=== PATIENT | female | born 1965 | race Caucasian/White ===

== ENCOUNTER 2017-05-08 23:34 | Emergency (ER) | payer BC ==
[~2017-05-08] VITALS: Ht 160 cm; Wt 83.0 kg
[~2017-05-08 23:34] MED LIST: ASPI81EC PO; ATEN50 PO; CITA20 PO; Percocet 5-3251 EACH PO; ROSU10TA PO
[2017-05-08] MEDS ORDERED: HYDCHL25 PO (23:46)
== END 2017-05-09 00:33 | disposition home or self-care (01) ==
LOC: ER 23:34
DX: S61.411A Laceration without foreign body of right hand, initial encounter (principal); Z79.899 Other long term (current) drug therapy; Z79.82 Long term (current) use of aspirin; I10 Essential (primary) hypertension; E78.00 Pure hypercholesterolemia, unspecified; W45.8XXA Other foreign body or object entering through skin, initial encounter; F41.9 Anxiety disorder, unspecified; F17.210 Nicotine dependence, cigarettes, uncomplicated
CPT/HCPCS: 90471; 90714; 99283

== ENCOUNTER → 2018-10-21 | Outpatient (CLI) | payer BC ==
[~2018-10-21] MED LIST changes: +ATEN100 PO; +Crestor20 MG PO; +HYDCHL25 PO
[2018-10-21 11:58] LABS: Adenovirus F 40/41 Not Detected (NOT DETECT); Astrovirus Not Detected (NOT DETECT); Campylobacter Sp Not Detected (NOT DETECT); Cryptosporidium Not Detected (NOT DETECT); Cyclospora Cayetanensis Not Detected (NOT DETECT); E. Coli O157 Not Detected (NOT DETECT); Entamoeba Histolytica Not Detected (NOT DETECT); Enteroaggregative E. coli-EAEC Not Detected (NOT DETECT); Enteropathogenic E. coli-EPEC Not Detected (NOT DETECT); Enterotoxigenic E. coli-ETEC Not Detected (NOT DETECT); Giardia Lamblia Not Detected (NOT DETECT); Norovirus GI/GII Not Detected (NOT DETECT); Plesiomonas Shigelloides Not Detected (NOT DETECT); Rotavirus A Not Detected (NOT DETECT); Salmonella Sp Not Detected (NOT DETECT); Sapovirus Not Detected (NOT DETECT); Shiga Toxin-prod E. coli-STEC Not Detected (NOT DETECT); Shigella/Enteroin E. coli-EIEC Not Detected (NOT DETECT); Vibrio Cholerae Not Detected (NOT DETECT); Vibrio Sp Not Detected (NOT DETECT); Yersinia Enterocolitica Not Detected (NOT DETECT)
== END | disposition home or self-care (01) ==
LOC: LAB SHORT 06:35 → LAB 06:35 → LAB FUT 10-06 09:55 → EDSTATUS 10-06 09:55
PROVIDERS: Student in an Organized Health Care Education/Training Program
DX: K52.9 Noninfective gastroenteritis and colitis, unspecified (principal); R74.8 Abnormal levels of other serum enzymes
CPT/HCPCS: 0097U

== ENCOUNTER 2018-10-31 09:53 | Day surgery (SDC) | payer BC ==
[~2018-10-31] VITALS: Ht 160 cm; Wt 78.3 kg
== END 2018-10-31 11:52 | disposition home or self-care (01) ==
LOC: ORSCSDS 09:53
PROVIDERS: Student in an Organized Health Care Education/Training Program
PROC: 0DBE8ZX Excision of Large Intestine, Via Natural or Artificial Opening Endoscopic, Diagnostic (ICD-10-PCS; principal; 2018-10-31 11:15)
PROC: 0DBP8ZX Excision of Rectum, Via Natural or Artificial Opening Endoscopic, Diagnostic (ICD-10-PCS; principal; 2018-10-31 11:15)
PROC: 0DBL8ZX Excision of Transverse Colon, Via Natural or Artificial Opening Endoscopic, Diagnostic (ICD-10-PCS; principal; 2018-10-31 11:15)
DX: R19.7 Diarrhea, unspecified (principal); D12.3 Benign neoplasm of transverse colon; K64.8 Other hemorrhoids; K57.30 Diverticulosis of large intestine without perforation or abscess without bleeding; F17.210 Nicotine dependence, cigarettes, uncomplicated; I10 Essential (primary) hypertension; E78.5 Hyperlipidemia, unspecified; Z79.899 Other long term (current) drug therapy
CPT/HCPCS: 88305; J2250; J2704; J7120

== ENCOUNTER 2019-04-04 18:01 | Emergency (ER) | payer OTHER, BC ==
[~2019-04-04] VITALS: Ht 160 cm; Wt 77.1 kg
[2019-04-04 18:43] LABS: BASOPHILS ABSOLUTE AUTO 0.07 K/mm3 (0.00-0.23); BASOPHILS PERCENT AUTO 1 % (0-2); EOSINOPHILS PERCENT AUTO 1 % (0-6); Hematocrit 36.7 % (33.0-51.0); Hemoglobin 12.3 g/dL (11.5-16.0); IMMATURE GRAN ABSOLUTE AUTO 0.13 K/mm3 (0.00-0.10); IMMATURE GRAN PERCENT AUTO 1 % (0-1); LYMPHOCYTES ABSOLUTE AUTO 3.43 K/mm3 (0.84-5.20); LYMPHOCYTES PERCENT AUTO 36 % (21-46); MONOCYTES ABSOLUTE AUTO 0.66 K/mm3 (0.16-1.47); MONOCYTES PERCENT AUTO 7 % (4-13); Mean Corpuscular HGB 32.5 pg (26.0-34.0); Mean Corpuscular HGB Conc 33.5 g/dL (31.5-36.5); Mean Corpuscular Volume 97 fL (80-100); NEUTROPHILS ABSOLUTE AUTO 5.04 K/mm3 (1.96-9.15); NEUTROPHILS PERCENT AUTO 53 % (41-73); Platelet Count 259 K/mm3 (150-400); RDW Coefficient Variation 12.3 % (11.7-14.2); RDW Standard Deviation 43.2 fL (35.1-46.3); Red Blood Cell Count 3.79 M/mm3 (3.80-5.20); White Blood Cell Count 9.43 K/mm3 (4.00-11.30)
[2019-04-04 19:00] LABS: Anion Gap 11 mmol/L (6-16); Blood Urea Nitrogen 16 mg/dL (8-24); Bun/Creatinine Ratio 25.3 (12.0-20.0); CO2, Blood 24 mmol/L (21-32); Calcium, Blood 9.3 mg/dL (8.5-10.1); Chloride, Blood 101 mmol/L (98-108); Creatinine, Blood 0.63 mg/dL (0.40-1.00); Glomerular Filtration Rate >60 (60-); Glucose, Blood 148 mg/dL (70-99); Potassium, Blood 2.7 mmol/L (3.5-5.5); Sodium, Blood 136 mmol/L (136-145)
== END 2019-04-04 19:05 | disposition short-term general hospital (02) ==
LOC: ER 18:01
PROVIDERS: Emergency Medicine
DX: S06.6X9A Traumatic subarachnoid hemorrhage with loss of consciousness of unspecified duration, initial encounter (principal); V49.60XA Unspecified car occupant injured in collision with unspecified motor vehicles in traffic accident, initial encounter; I10 Essential (primary) hypertension; E78.5 Hyperlipidemia, unspecified; F41.9 Anxiety disorder, unspecified; F17.210 Nicotine dependence, cigarettes, uncomplicated
CPT/HCPCS: 36415; 70450; 80048; 85025; 96374; 99285-25; J2405

== ENCOUNTER 2019-04-08 20:58 | Inpatient (IN) | payer OTHER, BC ==
[~2019-04-08] VITALS: Ht 160 cm; Wt 78.5 kg
[2019-04-08] MEDS ORDERED: ACET325 PO (21:26)
[2019-04-08] MEDS ORDERED: OXYC5 PO (21:27)
[2019-04-08] MEDS ORDERED: GAVILAX17 GM PO (21:27)
[2019-04-08] MEDS ORDERED: LEVE500 PO (21:27)
[2019-04-08 21:41] LABS: BASOPHILS ABSOLUTE AUTO 0.07 K/mm3 (0.00-0.23); BASOPHILS PERCENT AUTO 1 % (0-2); EOSINOPHILS ABSOLUTE AUTO 0.03 K/mm3 (0.00-0.68); EOSINOPHILS PERCENT AUTO 0 % (0-6); Hemoglobin 11.9 g/dL (11.5-16.0); IMMATURE GRAN PERCENT AUTO 2 % (0-1); LYMPHOCYTES ABSOLUTE AUTO 1.77 K/mm3 (0.84-5.20); LYMPHOCYTES PERCENT AUTO 13 % (21-46); MONOCYTES ABSOLUTE AUTO 0.92 K/mm3 (0.16-1.47); MONOCYTES PERCENT AUTO 7 % (4-13); Mean Corpuscular HGB 32.1 pg (26.0-34.0); Mean Platelet Volume 8.7 fL (9.1-12.4); NEUTROPHILS ABSOLUTE AUTO 10.24 K/mm3 (1.96-9.15); NEUTROPHILS PERCENT AUTO 77 % (41-73); Platelet Count 295 K/mm3 (150-400); RDW Coefficient Variation 11.8 % (11.7-14.2); RDW Standard Deviation 39.6 fL (35.1-46.3); Red Blood Cell Count 3.71 M/mm3 (3.80-5.20); White Blood Cell Count 13.33 K/mm3 (4.00-11.30)
[2019-04-08 21:42] LABS: Mean Corpuscular Volume 92 fL (80-100)
[2019-04-08 21:56] LABS: International Normalized Ratio 0.99; Prothrombin Time Results 10.6 Sec (9.7-11.5)
[2019-04-08 22:12] LABS: Alanine Aminotransfer (ALT/SGP 35 U/L (12-78); Albumin, Blood 3.7 g/dL (3.4-5.0); Albumin/Globulin Ratio 0.8 (0.8-1.8); Alk Phos 154 U/L (50-136); Anion Gap 9 mmol/L (6-16); Aspartate Aminotrans (AST/SGOT 41 U/L (12-37); Blood Urea Nitrogen 7 mg/dL (8-24); Bun/Creatinine Ratio 17.5 (12.0-20.0); CO2, Blood 25 mmol/L (21-32); Calcium, Blood 9.2 mg/dL (8.5-10.1); Chloride, Blood 84 mmol/L (98-108); Globulin, Blood 4.4 g/dL (2.2-4.0); Glomerular Filtration Rate >60 (60-); Glucose, Blood 117 mg/dL (70-99); Potassium, Blood 3.7 mmol/L (3.5-5.5); Sodium, Blood 118 mmol/L (136-145); Total Protein, Blood 8.1 g/dL (6.4-8.2)
[2019-04-08 23:40] LABS: Source, Urine Voided
[2019-04-08 23:44] LABS: Bilirubin, Urine Neg (Neg); Blood, Urine 3+ (Neg); Glucose Qualitative, Urine 2+ (Neg); Ketones, Urine 3+ (Neg); Leukocyte Esterase, Urine Neg (Neg); Nitrite, Urine Neg (Neg); Protein, Urine 3+ (Neg); Specific Gravity, Urine 1.015 (1.003-1.022); Urobilinogen, Urine 2+ (Normal)
[2019-04-08 23:49] LABS: Appearance, Urine Clear (Clear); Color, Urine Yellow (P-Yellow)
[2019-04-08 23:50] LABS: Bacteria Few /hpf; Squamous Epithelial Cells Few /hpf (Few)
[2019-04-09] MEDS ORDERED: BENZ100A PO (01:17)
[2019-04-09 03:08] LABS: Osmolality, Serum 256 mos/KG (275-300)
[2019-04-09 03:12] LABS: Anion Gap 12 mmol/L (6-16); Blood Urea Nitrogen 7 mg/dL (8-24); Bun/Creatinine Ratio 17.5 (12.0-20.0); CO2, Blood 18 mmol/L (21-32); Calcium, Blood 7.8 mg/dL (8.5-10.1); Chloride, Blood 94 mmol/L (98-108); Glomerular Filtration Rate >60 (60-); Glucose, Blood 104 mg/dL (70-99); Potassium, Blood 3.4 mmol/L (3.5-5.5); Sodium, Blood 124 mmol/L (136-145); Uric Acid, Blood 1.5 mg/dL (2.6-6.0)
[2019-04-09 04:48] LABS: Source, Urine Catheter
[2019-04-09 04:50] LABS: Bilirubin, Urine Neg (Neg); Blood, Urine 2+ (Neg); Glucose Qualitative, Urine Neg (Neg); Ketones, Urine Neg (Neg); Leukocyte Esterase, Urine Neg (Neg); Nitrite, Urine Neg (Neg); Protein, Urine Neg (Neg); Urobilinogen, Urine NORM (Normal)
[2019-04-09 05:00] LABS: Appearance, Urine Clear (Clear); Color, Urine Pale Yellow (P-Yellow)
[2019-04-09 05:01] LABS: Bacteria Not Seen /hpf; Red Blood Cells, Urine 0-2 /hpf (0-2); Squamous Epithelial Cells Rare /hpf (Few); White Blood Cells, Urine Not Seen /hpf (0-5)
--- NOTE | 2019-04-09 06:04 | NUR ---
PT DROWSEY A BASELINE, FORGETFUL UPON AWAKENING, MULTIPLE ATTEMPS TO GET OUT OF BED TO USE BATHROOM. PT VOIDING WITH URGENCY AND HIGH FREQUENCY, GAIT UNSTEADY AND IMPLUSIVE HISK FOR FALLS. DOYLE W/TEMP PLACED FOR STRICT I/O AND POSSIBLE DI. PT OUTPUT 1200ML/HR POST INSERTION. 700ML OUT FROM [id number] PT STILL ATTEMPS TO GET OUT OF BED WITH DOYLE IN PLACE. REDIRECTED AND EDUCATED ON NEED TO CALL NURSE BEFORE GETTING OUT OF BED. PT MAX TEMP 100.8, TYLENOL GIVEN. WILL CONTINUE TO MONITOR.
[2019-04-09 07:02] LABS: Anion Gap 9 mmol/L (6-16); Blood Urea Nitrogen 6 mg/dL (8-24); Bun/Creatinine Ratio 13.3 (12.0-20.0); CO2, Blood 19 mmol/L (21-32); Calcium, Blood 7.8 mg/dL (8.5-10.1); Chloride, Blood 104 mmol/L (98-108); Creatinine, Blood 0.45 mg/dL (0.40-1.00); Glomerular Filtration Rate >60 (60-); Glucose, Blood 119 mg/dL (70-99); Potassium, Blood 3.7 mmol/L (3.5-5.5); Sodium, Blood 132 mmol/L (136-145)
--- NOTE | 2019-04-09 08:46 | NUR ---
0745 ASSESMENT REVEALS PT IS EASILY AROUSED FOR SLEEP, FOLLOWS COMMANDS BUT IS FORGETS AND IS NOTED TO BE IMPULSIVE. PT DANITA WITH FULL GAZE AND FOLLOWS IN IN ALL DIRECTIONS. PT MOVING TOUNGE IN ALL DIRECTIONS. PT IS SOMEWHAT WEAK IN ALL EXT. BUT MOVING UPPER EXT WITH EQUAL ELECTRONIC DIE MAKER AND NO PRONATION OR DRIFT OBSERVED. PT BILAT EQUAL QUAD STRENGTH, BUT SOME SL MOD WEAKNESS OF L FOOT IS NOTED WITH DORSI AND PLANTERT FLEXION. PT WILL FOLLOW COMMANDS WELL TO ALL REQUESTS, HOWEVER FORGETFUL. PT DOES EXPRESS HAVING A H.A. BUT IMPROVED FOR 12/06 TO 5-09/05 AFTER TYLENOL PO DOSE EARLIER. WILL FOLLOW PT VS AND NEURO STATUS. PT LABS NOTED AND CALLED TO DR DAS WITH CHANGED IN IVF RATE NS TO 125ML. UO HAS BEEN QUITE HIGH AND REPORTED TO . URINE IS VERY CLEAR AND PALE. WILL MONITOR. PT IS ABLE TO REMEMBER HOW TO USE CALL LIGHT AND CALLS APPROPRIATELY.
--- NOTE | 2019-04-09 11:50 | NUR ---
1100 PT CONTINUES TO DIURES W/O DIURETICS. PT HAS DIURESED 3475 SENCE 06. HER VS ARE NOTED AND STABLE. PT HAS GOTTEN RELIEF FROM PO PAIN MEDS AND IS SLEEPING. PRIOR TO SLEEP PT WAS A/O AND VISITING WITH APPROPRIATELY. DUE TO THE HEAVY SELF DIURESIS NOTED, AND THAT THE PT IS SCHEDULED FOR 1200 LABS, WILL HOLD MEDICATIONS FOR NOW. LASIX DOSING WAS DISCUSSED WITH DR DAS DUE TO PT OWN SELF DIURESIS AND THE ORDER WAS NOT WITHDRAWN DUE TO PHYSICIAN CONCERNS ABOUT ICP ISSUES AND NOT OVER CORRECTING SERUM SODIUM WITH THE PRIOR FLUIDS THAT HAVE BEEN GIVEN. PLEASE REFER TO CURRENT LABS. DISCUSSED [facility].
[2019-04-09 12:32] LABS: Anion Gap 6 mmol/L (6-16); Blood Urea Nitrogen 6 mg/dL (8-24); Bun/Creatinine Ratio 12.3 (12.0-20.0); CO2, Blood 23 mmol/L (21-32); Calcium, Blood 8.5 mg/dL (8.5-10.1); Chloride, Blood 106 mmol/L (98-108); Creatinine, Blood 0.49 mg/dL (0.40-1.00); Glomerular Filtration Rate >60 (60-); Glucose, Blood 123 mg/dL (70-99); Potassium, Blood 3.5 mmol/L (3.5-5.5); Sodium, Blood 135 mmol/L (136-145)
--- NOTE | 2019-04-09 13:35 | NUR ---
PT NEURO ASSESSMENT STABLE EXCEPT PERSISTANT WEAKNESS OR PLANTER AND DORSI FLEXION OF L FOOT. PT IS OTHERWISE A/O AND CAMPOVERDE PERISITS AT 5-6/10 LEVEL WITH RELIEF TO SLEEP EARLIER. LABS NOTED ARE I/O AND LAISX DOSE GIVEN PER ORDER. FAMILY HAVE BEEN IN THE ROOM AND VISITING ALTHOUGH PT IS TIRED AND HAS PERSISTANT CAMPOVERDE.
--- NOTE | 2019-04-09 15:21 | NUR ---
PT CONT TO SLEEP WELL FROM PAIN MEDS AND VSS. OUTPUT FOLLOWED AND HAD NOTICIBLE SLOWED BEFORE LASIX WAS GIVEN. CONT TO BE NSR.
--- NOTE | 2019-04-09 17:23 | NUR ---
PT IS AWAKE AND ALERT NOTES CAMPOVERDE IS 4/10 AND VISITING WITH FAMILY. PT NEURO STATUS IS UNCHANGED OTHER THAN LESS IMPULSIVE AND L FOOT DORSI/PLANTER FLEX IS SIMULAR WITH ONLY SL SLUGGISHNESS TO RESPONSES AND SL STRONGER EFFORT BUT REMAINS TO BE A DEFICITE. SPEECH IS SLOW BUT CLEAR. I/O NOTED. VSS. PT IS TAKING PO WELL BUT REFUSING MEALS.
--- NOTE | 2019-04-09 19:38 | NUR ---
ASSUMED CARE AT 1915. PT SLEEPING, WAKES TO VERBAL, FOLLOWING COMMANDS, MOVE ALL EXTREMETIES WEAKLY, LUE POWERGLIDE. NO DRIPS RUNNING, DOYLE IN PLACE AND PATENT. HEADACHE 4/10 ON PAIN SCALE.
--- NOTE | 2019-04-09 19:54 | NUR ---
PT HR INCREASED TO 128BPM. DENIES CHEST, BP 114/70, SATS 90S%,
--- NOTE | 2019-04-09 20:11 | NUR ---
12 LEAD EKG PERFORMED AND RESULTS PRINTED PRINTED. HR 130S PT STILL DEINES CHEST PAIN PROVIDER CALLED MESSAGE LEFT FOR CALL BACK.
--- NOTE | 2019-04-09 20:30 | NUR ---
DR. OCASIO NOTIFIED OF RHYTHM CHANGE AND EKG RESULTS. 500ML BOLUS ORDER AND REPEAT BMP POST BOLUS ORDER.
--- NOTE | 2019-04-09 20:45 | NUR ---
BOLUS INFUSING, TYLENOL GIVEN FOR ELEVATED TEMP 100.1, PT STATED SHE FEELS DEHYDRATED AND DRANK 250ML OF WATER WITH MED.
--- NOTE | 2019-04-09 20:50 | NUR ---
RHYTHM CHANGE TO SINUS W/ HR IN 90S AND DECREASING. PT DENIES CHEST PAIN AT THIS TIME.
[2019-04-09 22:39] LABS: Anion Gap 8 mmol/L (6-16); Blood Urea Nitrogen 9 mg/dL (8-24); Bun/Creatinine Ratio 16.7 (12.0-20.0); CO2, Blood 23 mmol/L (21-32); Calcium, Blood 8.5 mg/dL (8.5-10.1); Chloride, Blood 104 mmol/L (98-108); Creatinine, Blood 0.54 mg/dL (0.40-1.00); Glomerular Filtration Rate >60 (60-); Glucose, Blood 125 mg/dL (70-99); Potassium, Blood 3.2 mmol/L (3.5-5.5); Sodium, Blood 135 mmol/L (136-145)
--- NOTE | 2019-04-10 01:30 | NUR ---
PT WOKE UP MORE ALERT, REALIZED SHE WAS IN THE HOSPITAL, REQUESTED ICE WATER AND TO HER PHONE. UNABLE TO LOCATE PHONE OR PURSE. PT WAS ABLE TO REMEMBER BOTH DAUGHTERS PHONE NUMBERS AND LEFT A MESSAGE ABOUT HER PURSE/PHONE. HEAD PAIN DOWN TO A 3/10 INCREASES WHILE AWAKE. OXY GIVEN PT SLEEPING
[2019-04-10 03:48] LABS: BASOPHILS ABSOLUTE AUTO 0.12 K/mm3 (0.00-0.23); BASOPHILS PERCENT AUTO 1 % (0-2); EOSINOPHILS ABSOLUTE AUTO 0.03 K/mm3 (0.00-0.68); EOSINOPHILS PERCENT AUTO 0 % (0-6); Hematocrit 35.4 % (33.0-51.0); Hemoglobin 12.3 g/dL (11.5-16.0); IMMATURE GRAN ABSOLUTE AUTO 0.25 K/mm3 (0.00-0.10); IMMATURE GRAN PERCENT AUTO 2 % (0-1); LYMPHOCYTES ABSOLUTE AUTO 1.41 K/mm3 (0.84-5.20); LYMPHOCYTES PERCENT AUTO 13 % (21-46); MONOCYTES ABSOLUTE AUTO 1.02 K/mm3 (0.16-1.47); MONOCYTES PERCENT AUTO 9 % (4-13); Mean Corpuscular HGB 32.6 pg (26.0-34.0); Mean Corpuscular HGB Conc 34.7 g/dL (31.5-36.5); Mean Corpuscular Volume 94 fL (80-100); Mean Platelet Volume 8.6 fL (9.1-12.4); NEUTROPHILS ABSOLUTE AUTO 8.41 K/mm3 (1.96-9.15); NEUTROPHILS PERCENT AUTO 75 % (41-73); Platelet Count 300 K/mm3 (150-400); RDW Coefficient Variation 12.2 % (11.7-14.2); Red Blood Cell Count 3.77 M/mm3 (3.80-5.20); White Blood Cell Count 11.24 K/mm3 (4.00-11.30)
[2019-04-10 04:04] LABS: Albumin, Blood 3.3 g/dL (3.4-5.0); Anion Gap 9 mmol/L (6-16); Blood Urea Nitrogen 10 mg/dL (8-24); CO2, Blood 22 mmol/L (21-32); Calcium, Blood 8.7 mg/dL (8.5-10.1); Chloride, Blood 103 mmol/L (98-108); Creatinine, Blood 0.46 mg/dL (0.40-1.00); Glomerular Filtration Rate >60 (60-); Glucose, Blood 142 mg/dL (70-99); Phosphorus, Blood 2.1 mg/dL (2.5-4.9); Sodium, Blood 134 mmol/L (136-145)
--- NOTE | 2019-04-10 06:40 | NUR ---
PT ALERT WITH SHORT TERM MEMORY LOSS. FOLLOWING COMMANDS, MOVE ALL EXTREMETIES WEAKLY. C/O HEADACHE PAIN CONTROLLED WITH OXY AND DILAUDID. PAIN INCREASED WHILE AWAKE AND BRIGHT LIGHTS. PT BECAME TACHY AT W/HR IN 130S AT 1953, 12-LEAD PREFORMED, NOTIFIED, 500L BOLUS ORDERED/GIVEN, HR <90S HALF WAY THROUGH BOLUS. NO CARDIAC ISSUE FOR REST OF SHIFT. POTASSIUM BEING INFUSED . 750 URINE OUT.
--- NOTE | 2019-04-10 11:47 | NUR ---
0800 PT IS A/O WITH NORMAL NEURO CHECK W/O NOTED DEFICETS. PT SL WEAK BUT NO OTHER SITUATION NOTED. PT IS VERBAL AND CALLING ON THE PHONE. PT CONT TO C/O CAMPOVERDE NOTED, AND MEDS HAVE RELIEFED WITH VARRIABLE RESULTS.
--- NOTE | 2019-04-10 16:28 | NUR ---
Initial spiritual care note: Per admit trigger, I met with Reshma to offer information about advanced care planning. She tells me that her spouse and adult children "know what I want." She told me that the reason she is here runs in her family. She denied being fearful and states that she believes she will be "fine." Prayer provided at bedside. Reshma was pleasant and appreciative. I will remain available.
--- NOTE | 2019-04-10 17:45 | NUR ---
PT HAS HAD LESS PAIN MOST OF PM. H.A. HAS INCREASED LAST FEW HOURS AND DECADRON AND PO MEDS GIVEN. PT IS CONTINUEING TO BE A/O AND MOVING ABOUT IN BED WELL AND HAS BEEN OOB. DOYLE WAS D/C EARLIER AND PT HAS VOIDED.
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
--- NOTE | 2019-04-10 22:34 | NUR ---
PT CALLED RN TO ROOM TO FIX LEADS, STS THEY FELL OFF WHEN SHE GOT OUT OF BED TO USE BSC. EDUCATED PT ON NEED TO USE CALL LIGHT PT STS "I KNOW I SHOULD HAVE USED THE CALL LIGHT BUT I DIDN'T FEEL DIZZY SO I THOUGHT I WOULD BE OKAY." CALL LIGHT WITHIN REACH, BED ALARM ON.
[2019-04-11 05:02] LABS: BASOPHILS ABSOLUTE AUTO 0.05 K/mm3 (0.00-0.23); BASOPHILS PERCENT AUTO 0 % (0-2); EOSINOPHILS ABSOLUTE AUTO 0.01 K/mm3 (0.00-0.68); EOSINOPHILS PERCENT AUTO 0 % (0-6); Hematocrit 35.8 % (33.0-51.0); Hemoglobin 12.3 g/dL (11.5-16.0); IMMATURE GRAN ABSOLUTE AUTO 0.29 K/mm3 (0.00-0.10); IMMATURE GRAN PERCENT AUTO 2 % (0-1); LYMPHOCYTES ABSOLUTE AUTO 1.24 K/mm3 (0.84-5.20); LYMPHOCYTES PERCENT AUTO 8 % (21-46); MONOCYTES ABSOLUTE AUTO 0.33 K/mm3 (0.16-1.47); MONOCYTES PERCENT AUTO 2 % (4-13); Mean Corpuscular HGB Conc 34.4 g/dL (31.5-36.5); Mean Corpuscular Volume 93 fL (80-100); Mean Platelet Volume 8.7 fL (9.1-12.4); NEUTROPHILS PERCENT AUTO 88 % (41-73); Platelet Count 368 K/mm3 (150-400); RDW Coefficient Variation 11.9 % (11.7-14.2); RDW Standard Deviation 40.7 fL (35.1-46.3); Red Blood Cell Count 3.84 M/mm3 (3.80-5.20); White Blood Cell Count 16.32 K/mm3 (4.00-11.30)
[2019-04-11 05:27] LABS: Anion Gap 8 mmol/L (6-16); Blood Urea Nitrogen 15 mg/dL (8-24); Bun/Creatinine Ratio 32.1 (12.0-20.0); CO2, Blood 23 mmol/L (21-32); Calcium, Blood 9.4 mg/dL (8.5-10.1); Chloride, Blood 99 mmol/L (98-108); Creatinine, Blood 0.47 mg/dL (0.40-1.00); Glomerular Filtration Rate >60 (60-); Glucose, Blood 142 mg/dL (70-99); Potassium, Blood 4.2 mmol/L (3.5-5.5); Sodium, Blood 130 mmol/L (136-145)
--- NOTE | 2019-04-11 06:11 | NUR ---
CALL TO DR OSORIO REGARDING MORNING SODIUM LEVEL, NO NEW ORDERS AT THIS TIME.
--- NOTE | 2019-04-11 06:46 | NUR ---
SHIFT SUMMARY PT REMAINS STABLE T/O NIGHT, SOME CONFUSION NOTED DURING SHIFT, PT NEEDING FREQUENT RE-ORIENTATION AND RE-EDUCATION REGARDING CALL LIGHT, TV REMOTE, AND TELEPHONE USE. SOME RESTLESS EARLY IN SHIFT, PT WANTING TO GO OUTSIDE TO SMOKE. INFORMED PT SHE HAD A NICOTINE PATCH ON AND THAT IT WAS UNSAFE FOR HER TO LEAVE THE UNIT. VSS T/O SHIFT. PT SBA TO BEDSIDE TOILET.
--- NOTE | 2019-04-11 07:30 | NUR ---
START OF SHIFT NOTE: RECEIVED REPORT FROM MYLA KEENE RN, ASSUMED CARE, PATIENT IS AWAKE, ALERT AND ORIENTED, DENIES PAIN, AFEBRILE, VSS, SBP SLIGHTLY ELEVATED, ON , SATS AT 987 %, LUNG SOUNDS CLEAR, HR 60'S - 70'S, BOWEL TONES HYPOACTIVE, PEDAL PULSES PALPABLE, PATIENT USES BSC WITH SBA ONLY, TOOK AM POTASSIUM WELL WITHOUT ANY PROBLEMS SWALLOWING, CALL LIGHT IN REACH, WILL CONTINUE TO MONITOR.
--- NOTE | 2019-04-11 08:50 | NUR ---
FAMILY AT BEDSIDE, BROUGHT EGG MCMUFFING FOR PATIENT, SHE REFUSED HOSPITAL BREAKFAST, TOOK ALL AM MEDICATIONS WELL WITH SIPS OF PEPSI, AND DAUGHTER AT BEDSIDE, CALL LIGHT IN REACH, WILL CONTINUE TO MONITOR.
--- NOTE | 2019-04-11 09:17 | NUR ---
DR. BEEBE IN TO SEE PATIENT, NEW ORDERS RECEIVED, PATIENT MAY GO HOME ONCE SHE AMBULATES AND SBP IS BELOW 150.
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
[2019-04-11] MEDS ORDERED: NIFE30ER PO ×2 (12:29→12:39)
[2019-04-11] MEDS ORDERED: DEXA4 PO ×2 (12:35→12:41)
--- NOTE | 2019-04-11 13:33 | NUR ---
PATIENT DISCHARGED TO HOME, DISCHARGE INSTRUCTIONS WRITTEN AND VERBAL PROVIDED AND EXPLAINED, PATIENT AND VERBALIZED UNDERSTANDING, NEW PRESCRIPTIONS WERE FAXED TO [facility] ON [facility], FAMILY WILL LOAN SERVICING REPRESENTATIVE, PIV ON LEFT WRIST REMOVED WITH TIP AND TUBING INTACT, ALSO LEFT UPPER ARM POWERGLIDE REMOVED WITH TIP AND TUBING INTACT, PATIENT TOLERATED WELL, PATIENT LEFT HOSPITAL VIA WHEELCHAIR AND RIDE HOME WAS PROVIDED BY .
== END 2019-04-11 13:30 | disposition home or self-care (01) | DRG 643 ==
LOC: ER 20:58 → ICUW 04-09 00:04 → ICUE 04-09 00:51
PROVIDERS: Emergency Medicine; Hospitalist; Internal Medicine; Internal Medicine Gastroenterology; ADMIT Hospitalist
DX: E22.2 Syndrome of inappropriate secretion of antidiuretic hormone (principal); G92 Toxic encephalopathy; I25.10 Atherosclerotic heart disease of native coronary artery without angina pectoris; I10 Essential (primary) hypertension; S06.6X9D Traumatic subarachnoid hemorrhage with loss of consciousness of unspecified duration, subsequent encounter; E78.00 Pure hypercholesterolemia, unspecified; F41.9 Anxiety disorder, unspecified; F17.210 Nicotine dependence, cigarettes, uncomplicated; T50.2X5A Adverse effect of carbonic-anhydrase inhibitors, benzothiadiazides and other diuretics, initial encounter; E87.6 Hypokalemia; V49.9XXD Car occupant (driver) (passenger) injured in unspecified traffic accident, subsequent encounter; Z88.8 Allergy status to other drugs, medicaments and biological substances; Z88.5 Allergy status to narcotic agent; Z79.899 Other long term (current) drug therapy
CPT/HCPCS: 36415; 51702; 70450; 71045; 80048; 80053; 80069; 81001; 82533; 83735; 83880; 83930; 83935; 84300; 84550; 85025; 85610; 85730; 93005; 93010; 96360; 96361; 99285-25; A9270; C1751; J1100; J1170; J1940; J3480; J7030; J7040

== ENCOUNTER 2023-10-05 17:44 | Emergency (ER) | payer BC ==
[~2023-10-05] VITALS: Ht 160 cm; Wt 77.1 kg
[~2023-10-05 17:44] MED LIST changes: +ACET325 PO; +BENZ100A PO; +DEXA4 PO; +GAVILAX17 GM PO; +LEVE500 PO; +NIFE30ER PO; +OXYC5 PO
[2023-10-05 18:11] LABS: BASOPHILS ABSOLUTE AUTO 0.08 K/mm3 (0.00-0.23); BASOPHILS PERCENT AUTO 1 % (0-2); EOSINOPHILS ABSOLUTE AUTO 0.04 K/mm3 (0.00-0.68); EOSINOPHILS PERCENT AUTO 0 % (0-6); Hematocrit 19.9 % (33.0-51.0); IMMATURE GRAN ABSOLUTE AUTO 0.15 K/mm3 (0.00-0.10); IMMATURE GRAN PERCENT AUTO 1 % (0-1); LYMPHOCYTES ABSOLUTE AUTO 1.32 K/mm3 (0.84-5.20); LYMPHOCYTES PERCENT AUTO 12 % (21-46); MONOCYTES ABSOLUTE AUTO 1.21 K/mm3 (0.16-1.47); MONOCYTES PERCENT AUTO 11 % (4-13); Mean Corpuscular HGB Conc 35.2 g/dL (31.5-36.5); Mean Corpuscular Volume 105 fL (80-100); Mean Platelet Volume 10.8 fL (9.1-12.4); NEUTROPHILS ABSOLUTE AUTO 7.97 K/mm3 (1.96-9.15); NEUTROPHILS PERCENT AUTO 74 % (41-73); NRBC ABSOLUTE 0.02 K/mm3 (0.00-0.02); NRBC Auto 0.2 /100 WBC (0.0-0.2); Platelet Count 113 K/mm3 (150-400); RDW Coefficient Variation 15.5 % (11.7-14.2); RDW Standard Deviation 58.3 fL (35.1-46.3); Red Blood Cell Count 1.89 M/mm3 (3.80-5.20); White Blood Cell Count 10.77 K/mm3 (4.00-11.30)
[2023-10-05 18:46] LABS: Albumin, Blood 2.7 g/dL (3.4-5.0); Albumin/Globulin Ratio 0.5 (0.8-1.8); Bilirubin, Total 14.9 mg/dL (0.1-1.0); Bun/Creatinine Ratio 13.2 (12.0-20.0); Calcium, Blood 8.4 mg/dL (8.5-10.1); Creatinine, Blood 1.36 mg/dL (0.40-1.00); Globulin, Blood 5.3 g/dL (2.2-4.0); Potassium, Blood 3.3 mmol/L (3.5-5.5)
[2023-10-05 23:50] LABS: International Normalized Ratio 1.51; Prothrombin Time Results 15.7 Sec (9.7-11.5)
[2023-10-06] MEDS ORDERED: NS 1,000 ML IV ONE (00:39)
[2023-10-06] MEDS ORDERED: NS 1,000 ML BAG IV ONE (00:40)
[2023-10-06] MEDS ORDERED: NS 1,000 ML BAG IR ONE (00:40)
[2023-10-06] MEDS ORDERED: NS 1,000 ML IV PRN (00:45)
[2023-10-06 04:30] VITALS: BP 118/53
== END 2023-10-06 06:03 | disposition home or self-care (01) ==
LOC: ER 17:44
PROVIDERS: Emergency Medicine
DX: K70.10 Alcoholic hepatitis without ascites (principal); D64.9 Anemia, unspecified; F10.90 Alcohol use, unspecified, uncomplicated
CPT/HCPCS: 36430; 80053; 82140; 85025; 85610; 85730; 86850; 86900; 86901; 86923; 96360; 96361; 99283-25; J7030; P9016

== ENCOUNTER 2023-10-21 15:56 | Inpatient (IN) | payer BC, OTHER ==
[2023-10-21] VITALS (9 sets, daily range): BP systolic 10–141; BP diastolic 49–107
[~2023-10-21] VITALS: Ht 160 cm; Wt 78.8 kg
[2023-10-21] MEDS ORDERED: ACAMPROSATE CA333 MG PO (16:54)
[2023-10-21] MEDS ORDERED: Albumin (Human) 25gm/100ml 100 ML IV ONE (17:45)
[2023-10-21] MEDS ORDERED: Phytonadione 5 MG Tab PO ONE (17:55)
[2023-10-21 17:59] LABS: BASOPHILS ABSOLUTE AUTO 0.09 K/mm3 (0.00-0.23); BASOPHILS PERCENT AUTO 0 % (0-2); EOSINOPHILS ABSOLUTE AUTO 0.07 K/mm3 (0.00-0.68); EOSINOPHILS PERCENT AUTO 0 % (0-6); Hematocrit 18.7 % (33.0-51.0); Hemoglobin 6.8 g/dL (11.5-16.0); IMMATURE GRAN ABSOLUTE AUTO 0.19 K/mm3 (0.00-0.10); IMMATURE GRAN PERCENT AUTO 1 % (0-1); LYMPHOCYTES ABSOLUTE AUTO 1.76 K/mm3 (0.84-5.20); LYMPHOCYTES PERCENT AUTO 9 % (21-46); MONOCYTES ABSOLUTE AUTO 1.57 K/mm3 (0.16-1.47); MONOCYTES PERCENT AUTO 8 % (4-13); Mean Corpuscular HGB 34.5 pg (26.0-34.0); Mean Corpuscular HGB Conc 36.4 g/dL (31.5-36.5); Mean Corpuscular Volume 95 fL (80-100); Mean Platelet Volume 10.2 fL (9.1-12.4); NEUTROPHILS ABSOLUTE AUTO 16.78 K/mm3 (1.96-9.15); NEUTROPHILS PERCENT AUTO 82 % (41-73); Platelet Count 164 K/mm3 (150-400); RDW Coefficient Variation 18.1 % (11.7-14.2); RDW Standard Deviation 62.4 fL (35.1-46.3); Red Blood Cell Count 1.97 M/mm3 (3.80-5.20); White Blood Cell Count 20.46 K/mm3 (4.00-11.30)
[2023-10-21] MEDS ORDERED: NS 500 ML IV SCH (18:20)
[2023-10-21] MEDS ORDERED: NS 1,000 ML IV ONE (18:20)
[2023-10-21 18:24] LABS: Albumin/Globulin Ratio 0.4 (0.8-1.8); Bilirubin, Total 11.1 mg/dL (0.1-1.0); Bun/Creatinine Ratio 29.4 (12.0-20.0); Calcium, Blood 8.3 mg/dL (8.5-10.1); Creatinine, Blood 0.54 mg/dL (0.40-1.00); Globulin, Blood 4.6 g/dL (2.2-4.0); Potassium, Blood 3.1 mmol/L (3.5-5.5); Total Protein, Blood 6.6 g/dL (6.4-8.2)
[2023-10-21 19:14] LABS: Bilirubin, Direct 8.9 mg/dL (0.0-0.3); Bilirubin, Indirect 2.4 mg/dL (0.1-0.7); Bilirubin, Total 11.3 mg/dL (0.1-1.0)
[2023-10-21] MEDS ORDERED: Potassium Chloride 20 MEQ/15 ML UDC PO ONE (20:00)
[2023-10-21] MEDS ORDERED: Nicotine 21 MG PATCH TOP SCH (20:10)
[2023-10-21] MEDS ORDERED: Piperacillin/Tazobactam Sod 4.5 GM in NS 100 ML IV SCH (23:00)
[2023-10-21 23:12] LABS: Source, Urine Clean Catch
[2023-10-21 23:27] LABS: Appearance, Urine Turbid (Clear); Blood, Urine 1+ (Neg); Color, Urine Brown (P-Yellow); Glucose Qualitative, Urine Neg (Neg); Ketones, Urine Neg (Neg); Leukocyte Esterase, Urine 3+ (Neg); Nitrite, Urine Pos (Neg); Protein, Urine 1+ (Neg); Urobilinogen, Urine 3+ (Normal)
[2023-10-21 23:37] LABS: Bilirubin, Urine 2+ (Neg)
[2023-10-21 23:38] LABS: Bacteria Many /hpf; Squamous Epithelial Cells Few /hpf (Few); White Blood Cells, Urine 25-50 /hpf (0-5)
[2023-10-22 03:43] VITALS: BP 132/68
[2023-10-22 03:54] LABS: BASOPHILS ABSOLUTE AUTO 0.09 K/mm3 (0.00-0.23); BASOPHILS PERCENT AUTO 1 % (0-2); EOSINOPHILS ABSOLUTE AUTO 0.08 K/mm3 (0.00-0.68); EOSINOPHILS PERCENT AUTO 1 % (0-6); Hematocrit 21.5 % (33.0-51.0); Hemoglobin 7.7 g/dL (11.5-16.0); IMMATURE GRAN ABSOLUTE AUTO 0.19 K/mm3 (0.00-0.10); IMMATURE GRAN PERCENT AUTO 1 % (0-1); LYMPHOCYTES ABSOLUTE AUTO 1.39 K/mm3 (0.84-5.20); LYMPHOCYTES PERCENT AUTO 8 % (21-46); MONOCYTES ABSOLUTE AUTO 1.46 K/mm3 (0.16-1.47); MONOCYTES PERCENT AUTO 9 % (4-13); Mean Corpuscular HGB 34.8 pg (26.0-34.0); Mean Corpuscular HGB Conc 35.8 g/dL (31.5-36.5); Mean Corpuscular Volume 97 fL (80-100); Mean Platelet Volume 9.5 fL (9.1-12.4); NEUTROPHILS ABSOLUTE AUTO 13.71 K/mm3 (1.96-9.15); NEUTROPHILS PERCENT AUTO 81 % (41-73); Platelet Count 157 K/mm3 (150-400); RDW Coefficient Variation 18.3 % (11.7-14.2); RDW Standard Deviation 64.4 fL (35.1-46.3); Red Blood Cell Count 2.21 M/mm3 (3.80-5.20); White Blood Cell Count 16.92 K/mm3 (4.00-11.30)
[2023-10-22 04:07] LABS: International Normalized Ratio 1.57; Prothrombin Time Results 16.2 Sec (9.7-11.5)
[2023-10-22 04:11] LABS: Albumin, Blood 2.2 g/dL (3.4-5.0); Albumin/Globulin Ratio 0.6 (0.8-1.8); Bilirubin, Total 14.5 mg/dL (0.1-1.0); Bun/Creatinine Ratio 25.5 (12.0-20.0); Creatinine, Blood 0.55 mg/dL (0.40-1.00); Potassium, Blood 3.8 mmol/L (3.5-5.5); Total Protein, Blood 6.2 g/dL (6.4-8.2)
--- NOTE | 2023-10-22 05:15 | NUR ---
Patient A&Ox4 this shift, calling appropriately to use the bathoom, SBA. Urine output adequate but sonal in color. NSR on tele, VSS on RA. 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 Guaic stool still pending, no BM this shift. UA sent. On zosyn. Q4h serum sodium level checks in place for hyponatremia, improving. Patient is Jaundiced, denies pain. LE edema + 2. Tolerating low sodium 2000ml FR diet. Slept comfortably through the night.
[2023-10-22 08:01] VITALS: BP 113/74
[2023-10-22] MEDS ORDERED: Multivitamins 1 Tab PO SCH (09:00)
[2023-10-22] MEDS ORDERED: Thiamine HCl 100 MG Tab PO SCH (09:00)
[2023-10-22] MEDS ORDERED: MethylPREDNISolone Sod Succ 40 MG VIAL IV SCH (09:00)
[2023-10-22] MEDS ORDERED: Pantoprazole Sodium 40 MG Injection IV SCH (09:00)
[2023-10-22] MEDS ORDERED: Nicotine 21 MG PATCH TOP SCH (09:00)
[2023-10-22] MEDS ORDERED: Heparin Sodium,Porcine 5,000 UNIT/0.5 ML SDV SC SCH (09:00)
[2023-10-22 11:55] VITALS: BP 122/67
[2023-10-22 16:58] VITALS: BP 135/60
[2023-10-22 17:08] LABS: Hematocrit 23.7 % (33.0-51.0); Hemoglobin 8.6 g/dL (11.5-16.0)
[2023-10-22 17:44] LABS: Percent Saturation 110.8 % (15.0-50.0)
--- NOTE | 2023-10-22 18:40 | NUR ---
SHIFT SUMMARY NEURO: A/OX4, SLIGHT UNSTEADY GAIT WHEN UP. EQUAL STRENGTH THROUGHOUT. MOVES ALL EXTREMETIES. PERRLA. CARDIAC: NSR, NORMOTENSIVE. TELE IN PLACE. AFEBRILE. +2 BLE PITTING EDEMA. LUNGS: WNL ON RA. PLEURAL EFFUSION SEEN ON YESTERDAYS CXR. GI/: GI CONSULTED. GUIAC STOOL SAMPLE NOT YET OBTAINED. ABD DISTENDED BUT SOFT. ACTIVE SOUNDS IN ALL QUADRANTS. NO C/O OF N/V. ABD ULTRASOUND COMPLETED 10/20. HIDA SCAN COMPLETED 10/21. URINATING WNL- C/O PEACH COLORED URINE AT HOME, BUT URINE HAS BEEN YELLOW FOR TALENT CONSULTANT. SKIN: JAUNDICED, SCATTERED BRUISING. SODIUM LEVELS TREND FLAT THIS SHIFT.
[2023-10-22 20:04] VITALS: BP 115/53
[2023-10-22 23:21] VITALS: BP 140/67
[2023-10-23] VITALS (17 sets, daily range): BP systolic 98–166; BP diastolic 37–98
--- NOTE | 2023-10-23 04:31 | NUR ---
Patient A&Ox4 though forgetul, SBA to BR overnight, denies dizziness, improvement in strength, some LE weakness and edema still present. NSR on telemetry, VSS on RA, NPO for possible EGD at 0900 today. Denies pain, still jaundiced on exam. No stool sample collected this shift due to no BM. OLIVIA midline intact. Patient slept comfortbly with no complaints, all fall risk interventions in place due to forgetfulness including bed alarm.
[2023-10-23 05:24] LABS: BASOPHILS ABSOLUTE AUTO 0.02 K/mm3 (0.00-0.23); BASOPHILS PERCENT AUTO 0 % (0-2); EOSINOPHILS ABSOLUTE AUTO 0.01 K/mm3 (0.00-0.68); EOSINOPHILS PERCENT AUTO 0 % (0-6); Hematocrit 21.3 % (33.0-51.0); Hemoglobin 7.8 g/dL (11.5-16.0); IMMATURE GRAN ABSOLUTE AUTO 0.25 K/mm3 (0.00-0.10); IMMATURE GRAN PERCENT AUTO 1 % (0-1); LYMPHOCYTES ABSOLUTE AUTO 0.96 K/mm3 (0.84-5.20); LYMPHOCYTES PERCENT AUTO 5 % (21-46); MONOCYTES ABSOLUTE AUTO 0.84 K/mm3 (0.16-1.47); MONOCYTES PERCENT AUTO 4 % (4-13); Mean Corpuscular HGB 35.1 pg (26.0-34.0); Mean Corpuscular HGB Conc 36.6 g/dL (31.5-36.5); Mean Corpuscular Volume 96 fL (80-100); Mean Platelet Volume 9.9 fL (9.1-12.4); NEUTROPHILS ABSOLUTE AUTO 17.15 K/mm3 (1.96-9.15); NEUTROPHILS PERCENT AUTO 89 % (41-73); Platelet Count 172 K/mm3 (150-400); RDW Coefficient Variation 18.5 % (11.7-14.2); RDW Standard Deviation 63.8 fL (35.1-46.3); Red Blood Cell Count 2.22 M/mm3 (3.80-5.20); White Blood Cell Count 19.23 K/mm3 (4.00-11.30)
[2023-10-23 05:30] LABS: International Normalized Ratio 1.52; Prothrombin Time Results 15.8 Sec (9.7-11.5)
[2023-10-23 06:10] LABS: Albumin, Blood 2.2 g/dL (3.4-5.0); Albumin/Globulin Ratio 0.5 (0.8-1.8); Bilirubin, Total 10.4 mg/dL (0.1-1.0); Bun/Creatinine Ratio 24.6 (12.0-20.0); Calcium, Blood 8.2 mg/dL (8.5-10.1); Creatinine, Blood 0.65 mg/dL (0.40-1.00); Globulin, Blood 4.4 g/dL (2.2-4.0); Potassium, Blood 4.2 mmol/L (3.5-5.5); Total Protein, Blood 6.6 g/dL (6.4-8.2)
[2023-10-23] MEDS ORDERED: NS 1,000 ML IV SCH (07:35)
[2023-10-23] MEDS ORDERED: Lactated Ringer's 1,000 ML IV SCH (08:05)
[2023-10-23] MEDS ORDERED: propofoL 20 ML IV ONE (08:22)
--- NOTE | 2023-10-23 08:51 | NUR ---
10/23/23 0851 Francie Bhatia HISTORY, CHART, MEDICATIONS AND ALLERGIES REVIEWED BEFORE START OF PROCEDURE. PATIENT CONFIRMS NPO STATUS AND AGREES WITH SCHEDULED PROCEDURE. 3-LEAD EKG REVIEWED WITH PHYSICIAN PRIOR TO START OF PROCEDURE. MONITOR INTACT WITH CONTINUOUS PULSE OXIMETRY,CAPNOGRAPHY, 3-LEAD EKG, INTERMITTENT BP. SUPPLEMENTAL O2 TO BE TITRATED THROUGHOUT PROCEDURE TO MAINTAIN O2 SATURATION ABOVE 90%. PATIENT DETERMINED TO BE ASA APPROPRIATE FOR PROPOFOL SEDATION PRIOR TO START OF PROCEDURE BY .
[2023-10-23] MEDS ORDERED: Pantoprazole Sodium 20 MG Tab PO SCH (09:40)
--- NOTE | 2023-10-23 16:23 | NUR ---
ASSUMED CARE OF PT AT 0700 THIS AM. NO ACUTE CHANGES REPORTED OVERNIGHT. PT TO EGD AT APROX 0755 AND RETURNED TO ROOM AROUND 0815. SEE PROCEDURE NOTE FOR DETAILS. PT RETURNED TO ROOM A&OX4, NO COMPLICATIONS NOTED AT THIS TIME. PT RESTING COMFORTABLY THROUGH OUT THE DAY W NO COMPLIANTS. OOB TO SHOWER AROUNG 1630 W ENTERPRISE ENGINEER SBA. CLARIFIED HEPARIN SQ ORDER WITH DUKE LIN TO GIVE. WILL ADMINISTER MEDICATIONS WHEN PT IS OUT OF THE SHOWER. PT IS CALM, COOPERATIVE AND ABLE TO MAKE HER NEEDS KNOWN, USES CALL LIGHT APPROPRIATELY. WILL CONTINUE TO MONITOR AND GIVE REPORT TO NOC SHIFT RN.
[2023-10-23] MEDS ORDERED: Propranolol HCL 20 MG TAB PO SCH (16:30)
[2023-10-24 03:45] VITALS: BP 126/78
[2023-10-24 04:17] LABS: BASOPHILS ABSOLUTE AUTO 0.03 K/mm3 (0.00-0.23); BASOPHILS PERCENT AUTO 0 % (0-2); EOSINOPHILS PERCENT AUTO 0 % (0-6); Hematocrit 22.5 % (33.0-51.0); Hemoglobin 7.8 g/dL (11.5-16.0); IMMATURE GRAN ABSOLUTE AUTO 0.59 K/mm3 (0.00-0.10); IMMATURE GRAN PERCENT AUTO 3 % (0-1); LYMPHOCYTES PERCENT AUTO 6 % (21-46); MONOCYTES ABSOLUTE AUTO 1.05 K/mm3 (0.16-1.47); MONOCYTES PERCENT AUTO 5 % (4-13); Mean Corpuscular HGB 34.1 pg (26.0-34.0); Mean Corpuscular HGB Conc 34.7 g/dL (31.5-36.5); Mean Corpuscular Volume 98 fL (80-100); Mean Platelet Volume 9.4 fL (9.1-12.4); NEUTROPHILS ABSOLUTE AUTO 18.15 K/mm3 (1.96-9.15); NEUTROPHILS PERCENT AUTO 86 % (41-73); Platelet Count 200 K/mm3 (150-400); RDW Coefficient Variation 18.8 % (11.7-14.2); RDW Standard Deviation 66.9 fL (35.1-46.3); Red Blood Cell Count 2.29 M/mm3 (3.80-5.20); White Blood Cell Count 21.12 K/mm3 (4.00-11.30)
[2023-10-24 04:43] LABS: Albumin, Blood 2.2 g/dL (3.4-5.0); Albumin/Globulin Ratio 0.5 (0.8-1.8); Bilirubin, Total 8.1 mg/dL (0.1-1.0); Bun/Creatinine Ratio 31.5 (12.0-20.0); Calcium, Blood 7.8 mg/dL (8.5-10.1); Creatinine, Blood 0.57 mg/dL (0.40-1.00); Globulin, Blood 4.6 g/dL (2.2-4.0); Potassium, Blood 4.3 mmol/L (3.5-5.5); Total Protein, Blood 6.8 g/dL (6.4-8.2)
--- NOTE | 2023-10-24 04:57 | NUR ---
SHIFT SUMMARY THIS RN ASSUMED CARE OF PATIENT AT 1900. PT A&O X4. ABLE TO MAKE NEEDS KNOWN. NEURO WNL. ON RA. VSS. 1ST DEGREE AVB WITH HR 60-70'S. DENIES ABDOMINAL PAIN AND N/V/D. PT UP TO BATHROOM WITH SBA. INFUSING NS PER EMAR. BED IN LOWEST POSITION AND CALL LIGHT WITHIN REACH. THIS RN WILL REPORT TO ONCOMING DAYSCTFT RN.
[2023-10-24] MEDS ORDERED: Pantoprazole Sodium 20 MG Tab PO SCH (06:00)
[2023-10-24] MEDS ORDERED: Albuterol HFA200 ACT/6.7 GM INH INH PRN (08:25)
[2023-10-24] MEDS ORDERED: ALBU90OI INH (08:26)
[2023-10-24 08:50] VITALS: BP 150/75
[2023-10-24] MEDS ORDERED: Heparin Sodium,Porcine 5,000 UNIT/0.5 ML SDV SC SCH (09:00)
[2023-10-24 09:03] LABS: International Normalized Ratio 1.34
[2023-10-24 11:53] VITALS: BP 168/68
[2023-10-24 12:12] LABS: HEPATITIS A ANTIBODY, IGM Negative (Negative); HEPATITIS B CORE ANTIBODY, IGM Negative (Negative); HEPATITIS B SURFACE ANTIGEN Negative (Negative); HEPATITIS C AB CIA INTERP Negative (Negative)
[2023-10-24 15:40] VITALS: BP 184/89
[2023-10-24] MEDS ORDERED: Labetalol HCL 5 MG/ML 4ML Injection (Single Dose) IV PRN (16:10)
[2023-10-24 16:35] VITALS: BP 133/66
--- NOTE | 2023-10-24 16:45 | NUR ---
PT CONTINUES TO BE SOB T/O THE DAY. BP ELEVATED THIS EVENING, LUNGS CONTINUE TO HAVE CRACKLES IN THE BASES. DR LOPEZ NOTIFIED AND NEW ORDERS RECEIVED, IVF STOPPED. URINE CX SHOWS E.COLI/ESBL, DR LOPEZ CHANGED IV ANTIBIOTICS. PT PUT IN CONTACT ISOLATION PER PROTOCOL FOR ESBL. PT EDUCATED ABOUT UTI, ABX, ESBL ISO AND MEDICATION CHANGES, PT VERBALIZES UNDERSTANDING AND HAS NO QUESTIONS OR CONCERNS AT THIS TIME. NO OTHER CHANGES T/O THE DAY. WILL CONTINUE TO MONITOR AND GIVE REPORT TO NOC SHIFT RN.
[2023-10-24] MEDS ORDERED: Spironolactone 25 MG Tab PO SCH (17:00)
[2023-10-24] MEDS ORDERED: Furosemide 40 MG Tab PO SCH (17:00)
[2023-10-24 20:59] VITALS: BP 160/72
[2023-10-24] MEDS ORDERED: Lactobacil 2-S.Thermo-Bifido 1 1 Cap PO SCH (21:00)
[2023-10-25 05:05] VITALS: BP 187/80
[2023-10-25 05:33] LABS: BASOPHILS ABSOLUTE AUTO 0.04 K/mm3 (0.00-0.23); BASOPHILS PERCENT AUTO 0 % (0-2); EOSINOPHILS ABSOLUTE AUTO 0.01 K/mm3 (0.00-0.68); EOSINOPHILS PERCENT AUTO 0 % (0-6); Hematocrit 24.1 % (33.0-51.0); Hemoglobin 8.5 g/dL (11.5-16.0); IMMATURE GRAN ABSOLUTE AUTO 0.76 K/mm3 (0.00-0.10); IMMATURE GRAN PERCENT AUTO 3 % (0-1); LYMPHOCYTES ABSOLUTE AUTO 2.19 K/mm3 (0.84-5.20); LYMPHOCYTES PERCENT AUTO 8 % (21-46); MONOCYTES PERCENT AUTO 6 % (4-13); Mean Corpuscular HGB 34.4 pg (26.0-34.0); Mean Corpuscular HGB Conc 35.3 g/dL (31.5-36.5); Mean Corpuscular Volume 98 fL (80-100); Mean Platelet Volume 9.2 fL (9.1-12.4); NEUTROPHILS ABSOLUTE AUTO 21.74 K/mm3 (1.96-9.15); NEUTROPHILS PERCENT AUTO 82 % (41-73); Platelet Count 234 K/mm3 (150-400); RDW Coefficient Variation 18.6 % (11.7-14.2); RDW Standard Deviation 66.2 fL (35.1-46.3); Red Blood Cell Count 2.47 M/mm3 (3.80-5.20); White Blood Cell Count 26.44 K/mm3 (4.00-11.30)
[2023-10-25 05:43] LABS: International Normalized Ratio 1.3; Prothrombin Time Results 13.6 Sec (9.7-11.5)
[2023-10-25 05:54] LABS: Albumin, Blood 2.5 g/dL (3.4-5.0); Albumin/Globulin Ratio 0.5 (0.8-1.8); Bilirubin, Total 7.8 mg/dL (0.1-1.0); Bun/Creatinine Ratio 30.8 (12.0-20.0); Calcium, Blood 8.3 mg/dL (8.5-10.1); Creatinine, Blood 0.78 mg/dL (0.40-1.00); Globulin, Blood 4.8 g/dL (2.2-4.0); Total Protein, Blood 7.3 g/dL (6.4-8.2)
--- NOTE | 2023-10-25 05:56 | NUR ---
SHIFT SUMMARY MEDICAL W/ TELE STATUS PATIENT ALERT, ORIENTED x4, COOPERATIVE WITH CARE. ABLE TO MAKE NEEDS KNOWN TO STAFF. SKIN CONTINUES TO BE YELLOW IN COLOR. MEDICATED x1 FOR HYPERTENSION. TELE READING SR. PATIENT ON RA WITH SPO2 >90%. AMBULATING INTO BATHROOM, ADEQUATE OUTPUT DURING THE NIGHT. TOLERATING PO. NO OTHER CHANGES DURING THE NIGHT, WILL REPORT TO DAY SHIFT RN.
[2023-10-25 07:43] VITALS: BP 146/69
[2023-10-25] MEDS ORDERED: Meropenem 2,000 MG in NS 250 ML IV SCH ×2 (08:30→16:11)
[2023-10-25 15:55] VITALS: BP 145/68
--- NOTE | 2023-10-25 16:35 | NUR ---
SHIFT SUMMARY PT REMAINS ALERT AND ORIENTED. BP STABLE. HR REMAINS NSR 1ST DEGREE. O2 SATS REMAIN ABOVE 90% ON RA. PT DENIES ANY PAIN. PT UP INDEPENDENT IN THE ROOM. WILL CONTINUE TO MONITOR AND REPORT TO ONCOMING RN
[2023-10-25 19:27] VITALS: BP 131/53
[2023-10-25] MEDS ORDERED: CefTRIAXone Sodium 1,000 MG in NS 100 ML IV SCH (21:00)
--- NOTE | 2023-10-25 22:10 | NUR ---
REPORT GIVEN TO MEDICAL FLOOR RN FOR TRANSFER TO ROOM 305
[2023-10-25 22:20] LABS: FACTIN SMOOTH MUSCLE,IGG ELISA 16 Units (0-19); MITOCHONDRIAL (M2) AB,IGG 4.5 Units (0.0-24.9)
[2023-10-25 22:27] LABS: ANTI-NUCLEAR AB ANA,IGG ELISA Detected (None Detected)
--- NOTE | 2023-10-26 03:59 | NUR ---
SHIFT SUMMARY: PT WAS A TRANSFER TO THE FLOOR FROM PCU. PT IS ALERT AND ORIENTED. PT IS CALM AND COOPERATIVE WITH CARE. PT IS INDEPENDENT IN THE ROOM. PT DENIES PAIN, NAUSEA, VOMITING, AND SOB. PT SLEPT MUCH OF THE NIGHT AFTER TRANSFER. NO ACUTE CHANGES OR COMPLICATIONS THIS SHIFT. BED IN LOW POSITION, CALL LIGHT WITHIN REACH. WILL REPORT TO DAY NURSE.
[2023-10-26 04:54] VITALS: BP 148/64
[2023-10-26 04:55] LABS: BASOPHILS ABSOLUTE AUTO 0.05 K/mm3 (0.00-0.23); BASOPHILS PERCENT AUTO 0 % (0-2); EOSINOPHILS ABSOLUTE AUTO 0.07 K/mm3 (0.00-0.68); EOSINOPHILS PERCENT AUTO 0 % (0-6); Hematocrit 23.7 % (33.0-51.0); Hemoglobin 8.4 g/dL (11.5-16.0); IMMATURE GRAN ABSOLUTE AUTO 0.59 K/mm3 (0.00-0.10); IMMATURE GRAN PERCENT AUTO 2 % (0-1); LYMPHOCYTES ABSOLUTE AUTO 2.68 K/mm3 (0.84-5.20); LYMPHOCYTES PERCENT AUTO 9 % (21-46); MONOCYTES ABSOLUTE AUTO 1.99 K/mm3 (0.16-1.47); MONOCYTES PERCENT AUTO 7 % (4-13); Mean Corpuscular HGB 34.4 pg (26.0-34.0); Mean Corpuscular HGB Conc 35.4 g/dL (31.5-36.5); Mean Corpuscular Volume 97 fL (80-100); NEUTROPHILS ABSOLUTE AUTO 23.02 K/mm3 (1.96-9.15); NEUTROPHILS PERCENT AUTO 81 % (41-73); Platelet Count 210 K/mm3 (150-400); RDW Coefficient Variation 18.6 % (11.7-14.2); RDW Standard Deviation 66.9 fL (35.1-46.3); Red Blood Cell Count 2.44 M/mm3 (3.80-5.20)
[2023-10-26 05:11] LABS: Bun/Creatinine Ratio 33.2 (12.0-20.0); Calcium, Blood 8.2 mg/dL (8.5-10.1); Creatinine, Blood 0.75 mg/dL (0.40-1.00); Potassium, Blood 4.3 mmol/L (3.5-5.5)
[2023-10-26 07:31] VITALS: BP 141/55
[2023-10-26] MEDS ORDERED: CEFP200 PO (12:12)
[2023-10-26] MEDS ORDERED: FURO40 PO (12:12)
[2023-10-26] MEDS ORDERED: MULVITA PO (12:12)
[2023-10-26] MEDS ORDERED: NICO21TP TOP (12:13)
[2023-10-26] MEDS ORDERED: PROP10 PO (12:14)
[2023-10-26] MEDS ORDERED: PANT20 PO (12:14)
[2023-10-26] MEDS ORDERED: B-1100 M1 PO (12:15)
[2023-10-26] MEDS ORDERED: SPIR25 PO (12:15)
[2023-10-26] MEDS ORDERED: VISBIOME 112.51 EACH PO (12:15)
--- NOTE | 2023-10-26 15:13 | NUR ---
Pt D/C at 1415, VSS, denies SOB, denies any pain, ambulates independently, A-0x4, lungs clear, heart regular, on RA. D/C instructions given, safety ensured.
[2023-10-26 18:21] LABS: ANTINUCLEAR AB (ANA),HEP-2,IGG <1:80 (<1:80); CYTOPLASM PATTERN Rods and Rings
== END 2023-10-26 14:13 | disposition home or self-care (01) | DRG 433 ==
LOC: PCU 15:56 → MEDS 10-25 22:19
PROVIDERS: Internal Medicine Gastroenterology; ADMIT Internal Medicine
PROC: 30233N1 Transfusion of Nonautologous Red Blood Cells into Peripheral Vein, Percutaneous Approach (ICD-10-PCS; 2023-10-21)
PROC: 0DJ08ZZ Inspection of Upper Intestinal Tract, Via Natural or Artificial Opening Endoscopic (ICD-10-PCS; principal; 2023-10-23 08:30)
DX: K70.10 Alcoholic hepatitis without ascites (principal); E87.1 Hypo-osmolality and hyponatremia; K76.6 Portal hypertension; N17.9 Acute kidney failure, unspecified; D64.9 Anemia, unspecified; K31.89 Other diseases of stomach and duodenum; F10.20 Alcohol dependence, uncomplicated; I10 Essential (primary) hypertension; F32.A Depression, unspecified; E80.6 Other disorders of bilirubin metabolism; F41.9 Anxiety disorder, unspecified; E78.5 Hyperlipidemia, unspecified; F17.210 Nicotine dependence, cigarettes, uncomplicated; K74.60 Unspecified cirrhosis of liver; G25.0 Essential tremor; Z90.89 Acquired absence of other organs; Z88.8 Allergy status to other drugs, medicaments and biological substances; Z79.899 Other long term (current) drug therapy; Z98.890 Other specified postprocedural states
CPT/HCPCS: 36415; 36430; 71046; 76700; 78226; 80048; 80053; 80074; 81001; 82140; 82247; 82248; 82607; 82728; 82746; 83540; 83550; 83935; 84295; 84300; 84443; 85014; 85018; 85025; 85610; 86015; 86038; 86039; 86381; 86850; 86900; 86901; 86923; 87040; 87077; 87086; 87186; 87338; 93975; 94760; A9270; A9537; C9113; J0696; J1644; J2185; J2543; J2704; J2919; J7030; J7040; J7050; P9016; P9047

== ENCOUNTER 2024-08-16 17:26 | Emergency (ER) | payer OTHER, BC ==
[~2024-08-16] VITALS: Ht 172.7 cm; Wt 83.5 kg
[~2024-08-16 17:26] MED LIST changes: +ACAMPROSATE CA333 MG PO; +ALBU90OI INH; +B-1100 M1 PO; +CEFP200 PO; +FURO40 PO; +MULVITA PO; +NICO21TP TOP; +PANT20 PO; +PRENATAL TABLE1 EAC2 PO; +PROP10 PO; +SPIR25 PO; +VISBIOME 112.51 EACH PO
[2024-08-16] MEDS ORDERED: Diphth,Pertuss(Acell),Tet Vac 0.5 ML VIAL IM ONE (18:00)
[2024-08-16 18:25] LABS: BASOPHILS ABSOLUTE AUTO 0.11 K/mm3 (0.00-0.23); BASOPHILS PERCENT AUTO 1 % (0-2); EOSINOPHILS ABSOLUTE AUTO 0.08 K/mm3 (0.00-0.68); EOSINOPHILS PERCENT AUTO 1 % (0-6); Hematocrit 35.8 % (33.0-51.0); IMMATURE GRAN ABSOLUTE AUTO 0.24 K/mm3 (0.00-0.10); IMMATURE GRAN PERCENT AUTO 2 % (0-1); LYMPHOCYTES ABSOLUTE AUTO 4.09 K/mm3 (0.84-5.20); LYMPHOCYTES PERCENT AUTO 41 % (21-46); MONOCYTES ABSOLUTE AUTO 0.88 K/mm3 (0.16-1.47); MONOCYTES PERCENT AUTO 9 % (4-13); Mean Corpuscular HGB 33.4 pg (26.0-34.0); Mean Corpuscular HGB Conc 33.5 g/dL (31.5-36.5); Mean Corpuscular Volume 100 fL (80-100); Mean Platelet Volume 8.5 fL (9.1-12.4); NEUTROPHILS ABSOLUTE AUTO 4.64 K/mm3 (1.96-9.15); NEUTROPHILS PERCENT AUTO 46 % (41-73); Platelet Count 120 K/mm3 (150-400); RDW Coefficient Variation 13.8 % (11.7-14.2); RDW Standard Deviation 50.6 fL (35.1-46.3); Red Blood Cell Count 3.59 M/mm3 (3.80-5.20); White Blood Cell Count 10.04 K/mm3 (4.00-11.30)
[2024-08-16 18:56] LABS: Albumin, Blood 2.9 g/dL (3.4-5.0); Albumin/Globulin Ratio 0.7 (0.8-1.8); Bilirubin, Total 1.8 mg/dL (0.1-1.0); Bun/Creatinine Ratio 24.2 (12.0-20.0); Calcium, Blood 7.7 mg/dL (8.5-10.1); Creatinine, Blood 0.58 mg/dL (0.40-1.00); Globulin, Blood 3.9 g/dL (2.2-4.0); Potassium, Blood 4.1 mmol/L (3.5-5.5); Total Protein, Blood 6.8 g/dL (6.4-8.2)
[2024-08-16] MEDS ORDERED: Propranolol HCL 20 MG TAB PO ONE (19:25)
[2024-08-16] MEDS ORDERED: ROSUVASTATIN CA20 MG PO (19:32)
[2024-08-16 22:37] LABS: International Normalized Ratio 1.38; Prothrombin Time Results 14.4 Sec (9.7-11.5)
[2024-08-17 01:18] LABS: Source, Urine Clean Catch
[2024-08-17 01:25] LABS: Bilirubin, Urine Neg (Neg); Blood, Urine Neg (Neg); Glucose Qualitative, Urine Neg (Neg); Ketones, Urine Neg (Neg); Leukocyte Esterase, Urine Neg (Neg); Nitrite, Urine Neg (Neg); Protein, Urine Neg (Neg); Specific Gravity, Urine 1.015 (1.003-1.022); Urobilinogen, Urine NORM (Normal)
[2024-08-17 01:31] LABS: Appearance, Urine Clear (Clear); Color, Urine Yellow (P-Yellow)
[2024-08-17] MEDS ORDERED: Diphth,Pertuss(Acell),Tet Vac 0.5 ML VIAL IM ONE (01:55)
[2024-08-17 03:00] VITALS: BP 148/61
== END 2024-08-17 03:15 | disposition home or self-care (01) ==
LOC: ER 17:26
PROVIDERS: Student in an Organized Health Care Education/Training Program
DX: S06.340A Traumatic hemorrhage of right cerebrum without loss of consciousness, initial encounter (principal); R55 Syncope and collapse; R07.81 Pleurodynia; I10 Essential (primary) hypertension; F17.210 Nicotine dependence, cigarettes, uncomplicated; W01.0XXA Fall on same level from slipping, tripping and stumbling without subsequent striking against object, initial encounter; Z88.8 Allergy status to other drugs, medicaments and biological substances; Z79.899 Other long term (current) drug therapy
CPT/HCPCS: 70450; 71046; 72125; 80053; 81003; 83690; 84484; 85025; 85610; 90471; 90715; 93005; 93010; 99285-25; A6590; A9270